=== PATIENT | female | born 1935 | race Caucasian/White ===

== ENCOUNTER 2018-05-01 17:05 | Inpatient (IN) | payer OTHER ==
[~2018-05-01] VITALS: Ht 167.6 cm; Wt 67.4 kg
[~2018-05-01 17:05] MED LIST: ASPIR-LOW81 MG PO; CYANOCOBALAM1000 MCG PO; FLORASTOR250 MG PO; LEVOFLOXACIN750 MG PO; MUCINEX600 MG PO; PREDNISONE10 MG PO; PROAIR RESPICL90 MCG IH; PYRIDOSTIGMINE60 MG PO; SIMVASTATIN40 MG PO; VITAMIN D31000 UNI2 PO
[2018-05-01 17:57] LABS: BASOPHIL (%) 0.3 % (0-1); EOSINOPHIL (%) 0 % (0-5); HEMATOCRIT 43.7 % (36.0-46.0); HEMOGLOBIN 14.6 G/DL (11.9-15.5); IMMATURE GRANULOCYTE (%) 0.5 % (0.0-0.7); LYMPHOCYTE (%) 10.2 % (15-42); MCH 32.4 PG (29.0-34.0); MCHC 33.4 G/DL (30.0-36.0); MCV 96.9 FL (83-99); MONOCYTE (%) 3.1 % (3-12); MONOCYTE COUNT 0.3 K/uL (0-0.8); NEUTROPHIL (%) 85.9 % (45-76); NEUTROPHIL COUNT 8.4 K/uL (1.8-6.4); PLATELET COUNT 334 K/uL (156-360); RBC DIS.WIDTH-CV 12.4 % (11.8-14.6); RBC DIS.WIDTH-SD 44.6 % (39-53); RED BLOOD COUNT 4.51 M/uL (3.80-5.20); WHITE BLOOD COUNT 9.8 K/uL (4.1-10.2)
[2018-05-01 18:08] LABS: CHLORIDE 105 mEq/L (99-109); POTASSIUM 4.7 mEq/L (3.7-5.4); SODIUM 141 mEq/L (136-147)
[2018-05-01 18:21] LABS: GLUCOSE 113 mg/dL (70-99)
[2018-05-01 18:25] LABS: CREATININE 0.8 mg/dL (0.6-1.3); GFR ESTIMATE (CALCULATED) > 59 mL/min/
[2018-05-01 18:26] LABS: UREA NITROGEN (BUN) 18 mg/dL (9-23)
[2018-05-01] MEDS ORDERED: PREDNISONE10 MG PO (20:22)
[2018-05-01 21:11] LABS: D-DIMER ELISA < 150.00 ng/mLDDU (<230)
[2018-05-01 22:25] VITALS: BP 173/80
[2018-05-02 04:01] VITALS: BP 129/71
[2018-05-02 05:19] LABS: BASOPHIL (%) 0.1 % (0-1); EOSINOPHIL (%) 0 % (0-5); HEMATOCRIT 40.4 % (36.0-46.0); IMMATURE GRANULOCYTE (%) 0.6 % (0.0-0.7); LYMPHOCYTE (%) 11.1 % (15-42); LYMPHOCYTE COUNT 1.1 K/uL (1.0-2.8); MCH 31.3 PG (29.0-34.0); MCHC 32.2 G/DL (30.0-36.0); MCV 97.1 FL (83-99); MONOCYTE (%) 2.6 % (3-12); MONOCYTE COUNT 0.3 K/uL (0-0.8); NEUTROPHIL (%) 85.6 % (45-76); NEUTROPHIL COUNT 8.7 K/uL (1.8-6.4); PLATELET COUNT 332 K/uL (156-360); RBC DIS.WIDTH-CV 12.3 % (11.8-14.6); RBC DIS.WIDTH-SD 44.6 % (39-53); RED BLOOD COUNT 4.16 M/uL (3.80-5.20); WHITE BLOOD COUNT 10.1 K/uL (4.1-10.2)
[2018-05-02 05:48] LABS: CHLORIDE 105 MEQ/L (99-109); CREATININE 0.8 MG/DL (0.6-1.3); GFR ESTIMATE (CALCULATED) > 59 mL/min/; GLUCOSE 106 mg/dL (70-99); POTASSIUM 4.2 MEQ/L (3.7-5.4); SODIUM 142 MEQ/L (136-147); UREA NITROGEN (BUN) 15 mg/dL (9-23)
[2018-05-02 07:55] VITALS: BP 171/76
[2018-05-02 11:20] VITALS: BP 166/70
[2018-05-02 15:46] VITALS: BP 145/65
[2018-05-02 19:03] VITALS: BP 137/60
[2018-05-02 23:52] VITALS: BP 139/79
[2018-05-03 03:13] VITALS: BP 140/64
[2018-05-03 05:47] LABS: BASOPHIL (%) 0.1 % (0-1); EOSINOPHIL (%) 0 % (0-5); HEMATOCRIT 40.1 % (36.0-46.0); IMMATURE GRANULOCYTE (%) 0.6 % (0.0-0.7); LYMPHOCYTE (%) 6.6 % (15-42); LYMPHOCYTE COUNT 0.7 K/uL (1.0-2.8); MCH 31.4 PG (29.0-34.0); MCHC 32.4 G/DL (30.0-36.0); MCV 96.9 FL (83-99); MONOCYTE (%) 1.1 % (3-12); MONOCYTE COUNT 0.1 K/uL (0-0.8); NEUTROPHIL (%) 91.6 % (45-76); PLATELET COUNT 333 K/uL (156-360); RBC DIS.WIDTH-CV 12.7 % (11.8-14.6); RBC DIS.WIDTH-SD 44.7 % (39-53); RED BLOOD COUNT 4.14 M/uL (3.80-5.20); WHITE BLOOD COUNT 10.9 K/uL (4.1-10.2)
[2018-05-03 06:14] LABS: CHLORIDE 107 MEQ/L (99-109); CREATININE 0.8 MG/DL (0.6-1.3); GFR ESTIMATE (CALCULATED) > 59 mL/min/; GLUCOSE 147 mg/dL (70-99); POTASSIUM 3.9 MEQ/L (3.7-5.4); SODIUM 142 MEQ/L (136-147); UREA NITROGEN (BUN) 20 mg/dL (9-23)
[2018-05-03 08:30] VITALS: BP 138/70
[2018-05-03 11:31] VITALS: BP 164/71
[2018-05-03 15:27] VITALS: BP 150/70
[2018-05-03 19:11] VITALS: BP 142/64
[2018-05-04 00:43] VITALS: BP 134/64
[2018-05-04 03:51] VITALS: BP 130/60
[2018-05-04 07:21] VITALS: BP 162/67
[2018-05-04 12:59] VITALS: BP 169/74
[2018-05-04 16:36] VITALS: BP 159/87
[2018-05-04 20:00] VITALS: BP 146/67
[2018-05-04 20:21] LABS: C DIFF TOXIN POSITIVE (NEGATIVE)
[2018-05-05 00:17] VITALS: BP 149/69
[2018-05-05 09:15] VITALS: BP 194/85
[2018-05-05 10:00] VITALS: BP 155/88
[2018-05-05 11:44] VITALS: BP 148/67
[2018-05-05] MEDS ORDERED: VANCOMYCIN125 MG/2.5 PO (12:32)
[2018-05-05 19:15] VITALS: BP 136/63
[2018-05-06] VITALS: BP 141/67
[2018-05-06 07:16] VITALS: BP 118/58
[2018-05-06 12:11] VITALS: BP 157/69
[2018-05-06 16:27] VITALS: BP 145/67
[2018-05-06 19:15] VITALS: BP 149/67
[2018-05-06 23:53] VITALS: BP 158/71
[2018-05-07 04:16] VITALS: BP 142/65
[2018-05-07 05:39] LABS: HEMATOCRIT 38.7 % (36.0-46.0); HEMOGLOBIN 12.7 G/DL (11.9-15.5); MCH 31.2 PG (29.0-34.0); MCHC 32.8 G/DL (30.0-36.0); MCV 95.1 FL (83-99); NRBC (%) 0.2 /100 WBC (0-0); PLATELET COUNT 282 K/uL (156-360); RBC DIS.WIDTH-CV 12.7 % (11.8-14.6); RBC DIS.WIDTH-SD 44.3 % (39-53); RED BLOOD COUNT 4.07 M/uL (3.80-5.20); WHITE BLOOD COUNT 12.3 K/uL (4.1-10.2)
[2018-05-07 06:16] LABS: CHLORIDE 107 MEQ/L (99-109); CREATININE 0.7 MG/DL (0.6-1.3); GFR ESTIMATE (CALCULATED) > 59 mL/min/; GLUCOSE 142 mg/dL (70-99); POTASSIUM 3.5 MEQ/L (3.7-5.4); SODIUM 141 MEQ/L (136-147); UREA NITROGEN (BUN) 19 mg/dL (9-23)
[2018-05-07 07:46] VITALS: BP 140/78
[2018-05-07 11:54] VITALS: BP 140/60
[2018-05-07 15:26] VITALS: BP 130/70
[2018-05-07 19:20] VITALS: BP 134/78
[2018-05-08] VITALS (7 sets, daily range): BP systolic 132–146; BP diastolic 62–80
[2018-05-08 05:30] LABS: HEMATOCRIT 36.5 % (36.0-46.0); HEMOGLOBIN 11.8 G/DL (11.9-15.5); MCH 31.1 PG (29.0-34.0); MCHC 32.3 G/DL (30.0-36.0); MCV 96.1 FL (83-99); NRBC (%) 0.2 /100 WBC (0-0); PLATELET COUNT 256 K/uL (156-360); RBC DIS.WIDTH-CV 12.9 % (11.8-14.6); WHITE BLOOD COUNT 12.1 K/uL (4.1-10.2)
[2018-05-08 06:18] LABS: CHLORIDE 106 MEQ/L (99-109); CREATININE 0.9 MG/DL (0.6-1.3); GFR ESTIMATE (CALCULATED) > 59 mL/min/; GLUCOSE 135 mg/dL (70-99); POTASSIUM 4.1 MEQ/L (3.7-5.4); SODIUM 142 MEQ/L (136-147); UREA NITROGEN (BUN) 26 mg/dL (9-23)
[2018-05-09 03:56] VITALS: BP 145/64
[2018-05-09 07:29] VITALS: BP 142/63
[2018-05-09 12:00] VITALS: BP 137/62
[2018-05-09 15:44] VITALS: BP 141/63
[2018-05-09 19:15] VITALS: BP 132/62
[2018-05-10] VITALS (8 sets, daily range): BP systolic 118–170; BP diastolic 60–72
[2018-05-11 05:02] VITALS: BP 144/65
[2018-05-11 05:27] LABS: BASOPHIL (%) 0.1 % (0-1); EOSINOPHIL (%) 0 % (0-5); HEMATOCRIT 35.2 % (36.0-46.0); HEMOGLOBIN 11.8 G/DL (11.9-15.5); IMMATURE GRANULOCYTE (%) 0.9 % (0.0-0.7); LYMPHOCYTE (%) 3.2 % (15-42); LYMPHOCYTE COUNT 0.4 K/uL (1.0-2.8); MCH 32.1 PG (29.0-34.0); MCHC 33.5 G/DL (30.0-36.0); MCV 95.7 FL (83-99); MONOCYTE COUNT 0.7 K/uL (0-0.8); NEUTROPHIL (%) 89.8 % (45-76); NEUTROPHIL COUNT 10.4 K/uL (1.8-6.4); PLATELET COUNT 222 K/uL (156-360); RBC DIS.WIDTH-CV 13.1 % (11.8-14.6); RED BLOOD COUNT 3.68 M/uL (3.80-5.20); WHITE BLOOD COUNT 11.6 K/uL (4.1-10.2)
[2018-05-11 06:01] LABS: CHLORIDE 105 MEQ/L (99-109); CREATININE 0.7 MG/DL (0.6-1.3); GFR ESTIMATE (CALCULATED) > 59 mL/min/; GLUCOSE 122 mg/dL (70-99); POTASSIUM 3.9 MEQ/L (3.7-5.4); SODIUM 141 MEQ/L (136-147); UREA NITROGEN (BUN) 30 mg/dL (9-23)
[2018-05-11] MEDS ORDERED: AMLODIPINE BESY10 MG PO (11:18)
[2018-05-11] MEDS ORDERED: METOPROLOL SUCC50 MG PO (11:18)
[2018-05-11] MEDS ORDERED: ADVAIR HFA120 INHALA IH (11:19)
[2018-05-11] MEDS ORDERED: ROBITUSSIN100 MG/5 M PO (11:22)
[2018-05-11] MEDS ORDERED: PREDNISONE10 MG PO (11:23)
[2018-05-11] MEDS ORDERED: VANCOMYCIN125 MG/2.5 PO (11:23)
[2018-05-11 12:20] VITALS: BP 120/56
== END 2018-05-11 15:00 | disposition home or self-care (01) | DRG 189 ==
LOC: EME 17:05 → EDOF 20:29 → 4SOUTH 20:29 → EDOF 20:29 → ENRESERV 20:34 → 4SOUTH 21:55
PROVIDERS: Emergency Medicine; Hospitalist; Internal Medicine; Physician Assistant
DX: J96.01 Acute respiratory failure with hypoxia (principal); J98.11 Atelectasis; A04.72 Enterocolitis due to Clostridium difficile, not specified as recurrent; J20.9 Acute bronchitis, unspecified; G70.00 Myasthenia gravis without (acute) exacerbation; E78.5 Hyperlipidemia, unspecified; I10 Essential (primary) hypertension; E87.6 Hypokalemia; I71.2 Thoracic aortic aneurysm, without rupture; K64.9 Unspecified hemorrhoids; R25.1 Tremor, unspecified; R63.4 Abnormal weight loss; G47.9 Sleep disorder, unspecified; J98.4 Other disorders of lung; Z90.49 Acquired absence of other specified parts of digestive tract; Z90.710 Acquired absence of both cervix and uterus; Z87.01 Personal history of pneumonia (recurrent); Z87.891 Personal history of nicotine dependence; Z79.52 Long term (current) use of systemic steroids; Z85.038 Personal history of other malignant neoplasm of large intestine; Z79.82 Long term (current) use of aspirin; Z79.51 Long term (current) use of inhaled steroids; Z82.49 Family history of ischemic heart disease and other diseases of the circulatory system
CPT/HCPCS: 71046; 71250; 80048; 83605; 83735; 83880; 85025; 85027; 85379; 87040; 87070; 87205; 87449; 87493; 93005; 93306; 93970; 94010; 94640; 94640 76; 94667; 94668; 94760; 94799; 99281; 99285; G0378; J0295; J0456; J0696; J1644; J2920; J2930; J7030; J7050; J7512